=== PATIENT | male | born 1990 | race African-American/Black ===

== ENCOUNTER 2018-01-20 00:40 | Emergency (ER) | payer SELFPAY ==
[2018-01-20] MEDS ORDERED: Morphine 4 MG/ML VIAL ONE (01:07)
[2018-01-20] MEDS ORDERED: Morphine 2 MG/ML SYRINGE ONE (01:07)
[2018-01-20] MEDS ORDERED: Ondansetron PF 4 MG/2 ML Vial ONE (01:07)
[2018-01-20 01:14] LABS: #Basophils 0.1 thou/uL (0.0-0.2); #Eosinphils 0.2 thou/uL (0.0-0.7); #Lymphocytes 1.8 thou/uL (1.20-3.40); #Monocytes 0.5 thou/uL (0.11-0.59); %Basophils 1.5 % (0.0-1.0); %Eosinophils 3.4 % (0.0-10.0); %Lymphocytes 32.7 % (21.0-51.0); %Monocytes 8.2 % (0.0-10.0); %Neutrophils 54.3 % (42.0-75.0); Hemoglobin 15.5 g/dL (14.0-18.0); Mean Corpuscular HGB CONC 33.2 g/dL (32.0-36.0); Mean Corpuscular Hemoglobin 31.5 pg (27.0-31.0); Mean Corpuscular Volume 94.8 fL (78.0-98.0); Mean Platelet Volume 7.8 fL (7.4-10.4); Platelet Count 256 thou/uL (130-400); RBC Distribution Width 11.9 % (11.5-14.5); Red Blood Cell (RBC) Count 4.92 mill/uL (4.70-6.10); White Blood Cell (WBC) Count 5.6 thou/uL (4.8-10.8)
[2018-01-20 01:33] LABS: Clarity Clear (Clear)
[2018-01-20 01:34] LABS: Bilirubin Negative (Negative); Blood, Urine Trace (Negative); Glucose, Urine (Dipstick) Negative (Negative); Leukocyte Negative (Negative); Nitrite Negative (Negative); Protein, Urine (Dipstick) Negative (Neg-Trace); Urobilinogen 0.2 mg/dL (0.2-1.0)
[2018-01-20 01:35] LABS: ALT (SGPT) 18 U/L (8-55); AST (SGOT) 22 U/L (5-34); Albumin 4.2 g/dL (3.5-5.0); Alkaline Phosphatase 49 U/L (40-150); Anion Gap 13 mmol/L (10-20); BUN (Urea Nitrogen) 11 mg/dL (8.9-20.6); Bilirubin, Total 0.5 mg/dL (0.2-1.2); CK (CPK) 775 U/L (30-200); Calc. Creatinine Clearance 0 mL/min (70-130); Calcium 9.2 mg/dL (7.8-10.44); Carbon Dioxide 22 mmol/L (22-29); Chloride 104 mmol/L (98-107); Estimated GFR-MDRD 85; Globulin 2.7 g/dL (2.4-3.5); Glucose 107 mg/dL (70-105); Lipase 43 U/L (8-78); Potassium 3.7 mmol/L (3.5-5.1); Protein, Total 6.9 g/dL (6.0-8.3); Sodium 135 mmol/L (136-145); Specific Gravity, Urine 1.018 (1.002-1.036)
[2018-01-20 01:45] LABS: Bacteria/HPF None Seen HPF (None Seen); Hyaline Casts/LPF NONE SEEN LPF (0-3 Hyaline); Other Casts/LPF None Seen LPF (0-3 Hyaline); RBC/HPF 0-3 HPF (0-3); Renal Epithelial None Seen HPF (0-3); Squamous Epithelial None Seen HPF (0-3); Transitional Epithelial NONE SEEN HPF (0-3); WBC/HPF 0-3 HPF (0-3); Yeast-All Forms None Seen HPF (None Seen)
--- NOTE | 2018-01-20 07:55 | ULT ---
PRELIMINARY REPORT/[facility]/EMERGENTY AFTER-HOURS PROCEDURE US Abdomen Limited, Right Upper Quadrant EXAM DATE/TIME: 01/20/2018 1:20 AM CLINICAL HISTORY: 27 years old, male; Pain; Abdominal pain; Localized; Right upper quadrant (ruq); Additional info: HX; Pancreatitis TECHNIQUE: Real-time ultrasound of the abdomen with image documentation. Examination was focused on the right up per quadrant. COMPARISON: No relevant prior studies available. FINDINGS: Liver: Unremarkable liver, no focal abnormality. Gallbladder: Several shadowing gallstones within the gallbladder, some in the region of the gallbladd er neck. No definite abnormal gallbladder wall thickening or pericholecystic fluid. Technologist stat es patient is tender over the gallbladder region during scanning. Common bile duct: Mild to moderate biliary tree dilation, with common duct measuring up to 9.1 mm. No visible common duct stone by ultrasound. Pancreas: Borderline to mildly prominent pancreatic duct, measuring up to 3.8 mm. Visible pancreas ot herwise appears essentially unremarkable. Right kidney: Images of the right kidney show no hydronephrosis. IMPRESSION: 1. Cholelithiasis, see additional details above. 2. Mild to moderate biliary tree dilation, with common duct measuring up to 9.1 mm. 3. Borderline/mild prominence of the pancreatic duct. 4. Other findings discussed above. Thank you for allowing us to participate in the care of your patient. Dictated and Authenticated by: Octavio Rapp MD 01/20/2018 1:51 AM Central Time ([place] & [place]) FINAL REPORT: RIGHT UPPER QUADRANT ULTRASOUND: I agree with the preliminary report given by Dr. Octavio Rapp of [facility]. POS: [facility]
== END 2018-01-20 03:30 | disposition home or self-care (01) ==
LOC: ERS 00:40
DX: K80.50 Calculus of bile duct without cholangitis or cholecystitis without obstruction (principal)
CPT/HCPCS: 76705; 80053; 81003; 81015; 82550; 83690; 85025; 87086; 96361; 96374; 96375; J2270; J2405

== ENCOUNTER 2018-02-01 03:12 | Day surgery (SDC) | payer SELFPAY ==
[2018-02-01 03:45] LABS: #Basophils 0.1 thou/uL (0.0-0.2); #Eosinphils 0.4 thou/uL (0.0-0.7); #Monocytes 0.6 thou/uL (0.11-0.59); #Neutrophils 2.7 thou/uL (1.40-6.50); %Basophils 1.5 % (0.0-1.0); %Lymphocytes 44.6 % (21.0-51.0); %Monocytes 8.7 % (0.0-10.0); %Neutrophils 39.2 % (42.0-75.0); Hemoglobin 16.1 g/dL (14.0-18.0); Mean Corpuscular HGB CONC 33.8 g/dL (32.0-36.0); Mean Corpuscular Hemoglobin 31.6 pg (27.0-31.0); Mean Corpuscular Volume 93.4 fL (78.0-98.0); Mean Platelet Volume 7.9 fL (7.4-10.4); Platelet Count 246 thou/uL (130-400); RBC Distribution Width 11.8 % (11.5-14.5); Red Blood Cell (RBC) Count 5.11 mill/uL (4.70-6.10); White Blood Cell (WBC) Count 6.8 thou/uL (4.8-10.8)
[2018-02-01 04:07] LABS: ALT (SGPT) 16 U/L (8-55); AST (SGOT) 21 U/L (5-34); Albumin 4.1 g/dL (3.5-5.0); Alkaline Phosphatase 45 U/L (40-150); Anion Gap 9 mmol/L (10-20); BUN (Urea Nitrogen) 14 mg/dL (8.9-20.6); Bilirubin, Total 0.3 mg/dL (0.2-1.2); Calc. Creatinine Clearance 0 mL/min (70-130); Calcium 9.2 mg/dL (7.8-10.44); Carbon Dioxide 26 mmol/L (22-29); Chloride 106 mmol/L (98-107); Estimated GFR-MDRD 67; Globulin 2.7 g/dL (2.4-3.5); Glucose 102 mg/dL (70-105); Lipase 43 U/L (8-78); Potassium 4.1 mmol/L (3.5-5.1); Protein, Total 6.8 g/dL (6.0-8.3); Sodium 137 mmol/L (136-145)
[2018-02-01] MEDS ORDERED: Morphine 4 MG/ML VIAL ONE (05:59)
[2018-02-01] MEDS ORDERED: Ondansetron PF 4 MG/2 ML Vial ONE ×2 (06:00→16:28)
[2018-02-01] MEDS ORDERED: Piperacillin/Tazobactam 3.375 GM VIAL ONE (06:00)
[2018-02-01] MEDS ORDERED: Bupivacaine HCl 0.5%/Epinephrine 1:200,000/PF 30 ml Vial ONE (06:48)
[2018-02-01] MEDS ORDERED: Fentanyl 100 MCG/2 ML VIAL ONE ×2 (07:01→08:54)
[2018-02-01] MEDS ORDERED: Ketorolac Tromethamine 30 MG/ML VIAL ONE (07:06)
[2018-02-01] MEDS ORDERED: Iothalamate Meglumine 60% 50 ML VIAL FS ONE (07:17)
--- NOTE | 2018-02-01 07:27 | HP ---
HISTORY OF PRESENT ILLNESS: Mr. Kenneth Dumas is a 27-year-old male who lives with his parents in [facility], works in the oil field. He reports a past history of pancreatitis with a past ultrasound in 2013 being normal. He occasionally rarely drinks alcohol. He now reports with intermittent pain for the last two weeks, seen in the emergency room again on 01/2015 with ultrasound demonstrating gal lstones with bile duct measuring up to 9 mm. He was sent home, but now returns with pain again on with normal liver function test. White count 6, hemoglobin 16. ALLERGIES: None. TOBACCO: Few cigarettes a day. ALCOHOL: Rarely, socially. MEDICATIONS: None routinely. PAST SURGICAL AND MEDICAL HISTORY: Noncontributory. REVIEW OF SYSTEMS: Ten point noncontributory. PHYSICAL EXAMINATION: VITAL SIGNS: 98 kilograms, 142/81, 90, 18, 97.9 degrees. HEENT: Unremarkable. LUNGS: Clear to auscultation. CARDIAC: Regular rate and rhythm without murmur or gallop. ABDOMEN: Soft. Mild tenderness in right upper quadrant, no guarding, no rebound. EXTREMITIES: Unremarkable. ASSESSMENT AND PLAN: History of pancreatitis without gallstones seen in 2013, now with symptomatic c holecystitis. We would recommend laparoscopic video cholecystectomy and cholangiogram. With normal liver function tests, I think he is unlikely has choledocholithiasis. Risk of infection, bleeding, v isceral and biliary injury discussed. He consents.
--- NOTE | 2018-02-01 08:35 | ULT ---
PRELIMINARY REPORT/[facility]/EMERGENTY AFTER-HOURS PROCEDURE US Abdomen Limited, Right Upper Quadrant EXAM DATE/TIME: 02/01/2018 5:15 AM CLINICAL HISTORY: 27 years old, male; Pain; Abdominal pain; Localized; Right upper quadrant (ruq) TECHNIQUE: Real-time ultrasound of the abdomen with image documentation. Examination was focused on the right up per quadrant. COMPARISON: US Gallbladder RUQ 01/20/2018 1:20 AM FINDINGS: Liver: Unremarkable. Gallbladder: Multiple gallstones. Gallbladder wall measuring, 3.4 mm. Positive San's sign reported . Common bile duct: Common bile duct measuring 5 mm, previously 9 mm. Pancreas: Visualized portion unremarkable. Right kidney: Unremarkable. No hydronephrosis. IMPRESSION: Cholelithiasis with borderline gallbladder wall thickening. Decreased dilation of the common bile oscar t. Thank you for allowing us to participate in the care of your patient. Dictated and Authenticated by: Saji Herrera MD 02/01/2018 6:06 AM Central Time ([place] & [place]) FINAL REPORT GALLBLADDER ULTRASOUND: Date: 02/01/18 FINDINGS/IMPRESSION: I agree with the preliminary report given by [facility]. POS: [facility]
[2018-02-01] MEDS ORDERED: Meperidine HCl/PF 25 MG/ML VIAL ONE (08:53)
--- NOTE | 2018-02-01 09:36 | OP ---
DATE OF PROCEDURE: 02/01/2018 PREOPERATIVE DIAGNOSES: Chronic cholecystitis, cholelithiasis, dilated bile duct of more than 1 cent imeter, normal liver function tests. POSTOPERATIVE DIAGNOSES: Chronic cholecystitis, cholelithiasis, dilated bile duct of more than 1 esvin timeter, normal liver function tests. PROCEDURE: Laparoscopic video cholecystectomy. Normal intraoperative cholangiogram with dilated cedrick e duct without filling defects and normal emptying into the duodenum. Fluoroscopy used. SURGEON: Dr. Everett Chavarria ANESTHESIA: General. Local 0.5% Marcaine with epinephrine, 30 mL total volume used. PROCEDURE IN DETAIL: The patient was taken to the operating room where under general anesthesia the abdomen was prepared with ChloraPrep, draped in routine fashion. Local anesthetic infiltrated into t he skin and subcutaneous tissue about each port site. Infraumbilical incision made and pneumoperiton eum to 15 mmHg obtained with the Veress needle, replacing it with a 5 port and video laparoscope inse rted. Right subxiphoid incision made and 11 port placed. Right subcostal incision made mid clavicul ar anterior axillary lines and 5 ports placed. Liver appeared to be normal. Gallbladder was distend ed and full of stones, outlet obstructed with stones. Fundus grasped and reflected cephalad. Infund ibulum grasped laterally. Cystic artery and duct dissected free. Critical view obtained. Cystic ar karen double clipped proximally and cystic duct seen and clipped on the gallbladder side, ____ in the cystic duct, cholangiocath inserted and cholangiogram was obtained using fluoroscopy revealing free f low of contrast into a dilated common bile duct without filling defects with normal emptying into the duodenum. Cholangiocath removed. Cystic duct stump doubly clipped. Cystic artery and duct divided . The gallbladder dissected free from the liver bed obtaining good hemostasis prior to division of f inal peritoneal attachments. Gallbladder and contents removed and submitted to Pathology. Good hemo stasis ensured with the cautery. Irrigant and pneumoperitoneum evacuated. All instruments removed a nd all skin incisions approximated with interrupted subdermal 4-0 Monocryl and DermaGlue applied.
[2018-02-01] MEDS ORDERED: ePHEDrine/0.9% NaCl/PF SYRINGE 50 mg/10 ml ONE (16:28)
[2018-02-01] MEDS ORDERED: Lidocaine 1% PF 5 ML VIAL ONE (16:28)
[2018-02-01] MEDS ORDERED: PHENYLEPHRINE-NS 100 MCG/ML 10 ML SYRINGE ONE (16:28)
[2018-02-01] MEDS ORDERED: PROPOFOL 200 MG/20 ML VIAL ONE (16:28)
[2018-02-01] MEDS ORDERED: Glycopyrrolate 0.2 MG/ML 5 ML SYRINGE ONE (16:28)
[2018-02-01] MEDS ORDERED: Dexamethasone 20 MG/5 ML VIAL ONE (16:28)
--- NOTE | 2018-02-01 18:07 | RAD ---
INTRAOPERATIVE CHOLANGIOGRAM: 02/01/18 EXPOSURE: 7 seconds. 0.841 mGy. FINDINGS: Two intraoperative fluoroscopic views demonstrate opacification of the common bile duct and intrahepa tic biliary system. Contrast does opacify the duodenum. IMPRESSION: Unremarkable intraoperative cholangiogram. POS: [facility]
== END 2018-02-01 10:32 | disposition home or self-care (01) ==
LOC: ERS 03:12 → SDC/OP 06:53
PROVIDERS: ATTEND Specialist
PROC: 0FT44ZZ Resection of Gallbladder, Percutaneous Endoscopic Approach (ICD-10-PCS; principal; 2018-02-01)
PROC: BF131ZZ Fluoroscopy of Gallbladder and Bile Ducts using Low Osmolar Contrast (ICD-10-PCS; principal; 2018-02-01)
DX: K80.10 Calculus of gallbladder with chronic cholecystitis without obstruction (principal); F17.210 Nicotine dependence, cigarettes, uncomplicated; Z79.899 Other long term (current) drug therapy
CPT/HCPCS: 36415; 47532; 76705; 80053; 83690; 85025; 88304; 96365; 96374; 96375; J0131; J0670; J1100; J1610; J1885; J2001; J2175; J2270; J2405; J2543; J2704; J3010; Q9961

== ENCOUNTER 2018-05-22 15:33 | Emergency (ER) | payer SELFPAY | END 2018-05-22 16:12 | disposition home or self-care (01) | LOC: ERS 15:33 | DX: R59.0 Localized enlarged lymph nodes (principal) | CPT/HCPCS: 99282 ==

== ENCOUNTER 2019-09-10 20:02 | Emergency (ER) | payer BC, SELFPAY ==
[2019-09-10] MEDS ORDERED: HYDROcodone/Acetaminophen 5/325 mg Tablet ONE (20:21)
[2019-09-10] MEDS ORDERED: Ibuprofen 200 MG TAB ONE (20:21)
--- NOTE | 2019-09-10 20:34 | RAD ---
Exam: XR Knee Lt 4 View STANDARD HISTORY: Left knee and ankle pain. COMPARISON: None FINDINGS: No acute fracture, dislocation, or other acute osseous abnormality is identified. IMPRESSION: No acute osseous abnormality is identified.
--- NOTE | 2019-09-10 20:37 | RAD ---
Exam: XR Ankle Lt 3 View STANDARD HISTORY: Left ankle pain after stepping in a hole one day ago. COMPARISON: None FINDINGS: The ankle mortise is congruent. No acute fracture, dislocation, or other acute osseous abnormality is identified. IMPRESSION: No acute osseous abnormality is identified.
== END 2019-09-10 21:38 | disposition home or self-care (01) ==
LOC: ERS 20:02
DX: M25.572 Pain in left ankle and joints of left foot (principal); M25.562 Pain in left knee